=== PATIENT | male | born 1950 | race Caucasian/White ===

== ENCOUNTER 2022-05-11 07:57 | Day surgery (SDC) | payer MEDICARE, OTHER ==
[~2022-05-11] VITALS: Ht 165.1 cm; Wt 76.8 kg
[~2022-05-11 07:57] MED LIST: ASPIRIN81 MG PO; DOXYCYCLINE HY100 MG PO; ENALAPRIL MALEA20 MG PO; FEOSOL325 MG PO; LEVOTHYROXINE50 MCG PO; MELOXICAM15 MG PO; TURMERIC500 M1 PO
[2022-05-12 06:32] LABS: BASOPHIL 0.1 % (0-2); EOSINOPHIL 0 % (0-7); HCT 35.1 % (42.0-52.0); HGB 11.5 g/dl (13.2-18.0); LYMPHOCYTE 10.4 % (15-48); MCH 29.1 pg (25.0-31.0); MCHC 32.8 g/dL (32.0-36.0); MCV 88.9 fL (78.0-100.0); MONOCYTE 5.1 % (0-12); MPV 9.8 fL (6.0-9.5); NEUTROPHIL 83.9 % (41-80); NRBC 0; PLT 222 K/uL (150-400); RBC 3.95 M/uL (4.70-6.00); RDW 13.5 % (11.5-14.0); WBC 14.4 K/uL (4.0-10.5)
[2022-05-12 06:51] LABS: CREATININE 0.8 mg/dL (0.67-1.17); POTASSIUM 4.6 mmol/L (3.5-5.1)
[2022-05-12] MEDS ORDERED: FEOSOL325 MG PO (08:45)
[2022-05-12] MEDS ORDERED: CHILDREN'S ASPI81 MG PO (08:45)
--- NOTE | 2022-05-12 11:45 | NUR ---
UPON REMOVING BULKY SURGICAL DRESSING, DIME-SIZED AREA FOUND ON PT'S LEFT CHOU. AREA IS BROWNISH-BLACK IN COLOR AND COVERED WITH TEGADERM. PT REPORTS HAVING THIS PRIOR TO ARRIVAL TO HOSPITAL.
== END 2022-05-12 11:36 | disposition home or self-care (01) ==
LOC: FAS 07:57 → FMS 11:16 → FAS 12:30
PROVIDERS: Orthopaedic Surgery
DX: M17.12 Unilateral primary osteoarthritis, left knee (principal); M79.4 Hypertrophy of (infrapatellar) fat pad; I10 Essential (primary) hypertension; I25.10 Atherosclerotic heart disease of native coronary artery without angina pectoris; E78.5 Hyperlipidemia, unspecified
CPT/HCPCS: 36415; 73560; 80048; 85025; 86850; 86900; 86901; 94010; 94760; 97110; 97162; 97165; 97530-GP; C1713; C1776; J0171; J0697; J1100; J1170; J1885; J2250; J2270; J2370; J2405; J2704; J2795; J3010; J7120